=== PATIENT | male | born 1975 | race Caucasian/White ===

== ENCOUNTER 2018-09-12 05:10 | Observation (INO) ==
[2018-09-12] MEDS ORDERED: Ondansetron 4 MG/2 ML VIAL IVP PRN (07:39)
[2018-09-12] MEDS ORDERED: Naloxone 0.4 MG/ML INJ IVP PRN (07:39)
[2018-09-12 07:43] LABS: Basophils # 0.1 K/mcL (0.0-0.2); Basophils % 0.4 %; Eosinophils # 0.1 K/mcL (0.0-0.6); Eosinophils % 0.4 %; Hematocrit 40.4 % (37.5-50.1); Hemoglobin 13.3 g/dL (12.9-16.9); Immature Granulocytes % 0.5 % (0-4); Lymphocytes # 3.8 K/mcL (0.6-4.6); Mean Corpuscular HGB Conc 32.9 g/dL (31.6-35.5); Mean Corpuscular Hemoglobin 29.6 pg (28.0-33.3); Mean Corpuscular Volume 89.8 fL (83.0-100.0); Mean Platelet Volume 9.9 fL (9.4-12.4); Monocytes % 8.4 %; Neutrophils # 7.3 K/mcL (1.6-8.9); Platelet Count 275 K/mcL (140-400); Red Cell Distribution Width 13.1 % (11.5-14.5); Segmented Neutrophils % 59.3 %; White Blood Count 12.3 K/mcL (4.3-11.1)
[2018-09-12 07:44] LABS: Albumin 4.2 g/dL (3.5-5.7); Albumin/Globulin Ratio 1.4 (1.1-2.2); Bilirubin,Total 0.8 mg/dL (0.3-1.0); Calcium 8.9 mg/dL (8.6-10.3); Globulin 3.1 g/dL (2.4-3.5); Potassium 4.1 mEq/L (3.5-5.1); Total Protein 7.3 g/dL (6.4-8.9)
--- NOTE | 2018-09-12 08:35 | Internal Med History&Physical ---
Date of Encounter: 09/12/18 Time of Encounter: 08:29 Internal Medicine - H&P: HPI History of present illness: Mr. Obregon is a 42 year old male with no known past medical history presents as a transfer from [facility] due to acute kidney injury. He went to [place] after syncopal episode at work. Patient was not eating much as was dehydrated. Fellow workers told him he completely passed out despite giving him water and Gatorade. He denies any chest pain. Had a brief episode of SOB and nausea and difficulty urinating recently. Denies diarrhea, numbness/tingling, headache, change in vision, loss of bowel/bladder function. He arrived to [place] in no acute distress per reports. Labs showed he had a creatinine of 3.0, low magnesium, sodium 132, chloride 97. He had a Molina catheter placed to monitor I and O. No prior lab work is available. A CT abdomen/pelvis showed no acute findings. EKG was unremarkable. He was given about 3.5L of IV fluids prior to transfer. Glucose was elevated at 259 (after receiving glucose prior to arrival to [place]). Urine drug screen was positive for opiates and amphetamines. He is currently in no acute distress. He was transferred here as a request for further Nephrology workup and a renal ultrasound. Past Med Surg Social Fam HX - Past Medical History Medical history: hypertension Additional medical history: pre-diabetes, depression, KAUSHAL Psychiatric history: anxiety, depression - Past Surgical History Surgical History: no surgical history Additional surgical history: skin graft 1993 on left middle finger - Social History Smoking Status: Current every day smoker Packs per day: 5 cigs a day Smokeless Tobacco Status: No Alcohol use: none Drug use: marijuana, other - Family History Father Hx Family Cardiac Disorders: Yes (htn,) Hx Family Musculoskeletal Disorders: Yes (sciatica) Grandfather Hx Family Cancer: Yes (brain cancer) Grandmother Hx Family Cancer: Yes (breast cancer) Internal Medicine - H&P: Meds No Known Home Drugs 09/12/18 [History] Allergy/AdvReac Type Severity Reaction Status Date / Time Amoxicillin AdvReac Hives Verified 11/23/14 17:16 All Systems PM: A 10-system review of systems was performed and is negative for pertinent findings except as documented above in the HPI. - Constitutional Constitutional: excessive sweating, fatigue, falls, no anorexia, no chills, no weight gain, no weight loss - EENT Eyes: no blurry vision Ears: no decreased hearing, no ear pain, no tinnitus Nose, mouth and throat: no bleeding gums, no dysphagia - Cardiovascular Cardiovascular ROS IM: no chest pain, no dyspnea on exertion, no edema, no palpitations - Respiratory Additional comments: Brief episode of SOB - Genitourinary Genitourinary ROS male: difficulty urinating (for several months) - Musculoskeletal Musculoskeletal ROS IM: no arthralgias, no deformity, no muscle cramps - Integumentary Integumentary IM: no rash - Neurological Neurological ROS: dizziness, no abnormal gait, no abnormal hearing, no abnormal movements, no abnormal speech, no confusion, no convulsions, no focal weakness, no loss of vision, no memory loss, no numbness, no tremor(s) - Psychiatric Psychiatric: anxiety - Hematologic/Lymphatic Hematologic/Lymphatic: no easy bleeding, no easy bruising, no lymphadenopathy - Constitutional Vitals: Temp Pulse Resp BP Pulse Ox 97.6 F 73 17 129/88 96 09/12/18 06:30 09/12/18 06:30 09/12/18 06:30 09/12/18 06:30 09/12/18 06:30 General appearance: Present: A&O X 3 Exam: . - Head Head exam: Present: atraumatic, normocephalic - Eye Eye exam: Present: PERRL, conjuntiva pink, sclera anicteric Pupils: Present: PERRL - ENT Additional comments: Oral mucosa slightly dry. - Neck Neck exam general surgery: Present: supple, trachea midline. Absent: lymphadenopathy - Respiratory Respiratory exam: Present: CTAB. Absent: accessory muscle use, rales, rhonchi, wheezes - Cardiovascular Cardiovascular exam: Present: RRR, +S1, +S2. Absent: diastolic murmur, gallop, rubs, systolic murmur - GI/Abdominal GI/Abdominal exam: Present: normal bowel sounds, soft, no peritoneal signs. Absent: distended, tenderness - Extremities Exam Extremities exam: Present: warm, radial pulses palpable and symmetrical. Absent: calf tenderness, cyanotic, pedal edema - Neurological Exam Neurological exam: Present: CN II-XII intact, oriented X3, no focal deficits. Absent: pronater drift, facial droop, speech deficit - Psychiatric Additional comments: pressured speech - Skin Skin exam: Present: dry, intact Internal Med - H&P Results - Labs CBC & Chem 7: 09/12/18 07:09 09/12/18 07:09 Labs: Short CBC 09/12/18 Range/Units 07:09 WBC 12.3 H (4.3-11.1) K/mcL Hgb 13.3 D (12.9-16.9) g/dL Hct 40.4 (37.5-50.1) % Plt Count 275 (140-400) K/mcL Neutrophils # 7.3 (1.6-8.9) K/mcL BMP 09/12/18 07:09 Sodium 136 Potassium 4.1 Chloride 103 Carbon Dioxide 21 L BUN 37 H Creatinine 1.75 H Glucose 123 H Calcium 8.9 Liver Function 09/12/18 Range/Units 07:09 Total Bilirubin 0.8 (0.3-1.0) mg/dL AST 32 (13-39) Units/L ALT 58 H (7-52) Units/L Alkaline Phosphatase 56 (34-104) Units/L Albumin 4.2 (3.5-5.7) g/dL - Assessment and Plan (1) Acute renal failure Current Visit: No Status: Acute Assessment and plan: Highly suggestive of prerenal cause from dehydration. Given IV fluids at [place] and creatinine was 3.0, recheck here shows 1.7 with aggressive hydration. Nephrology consulted by request and renal ultrasound ordered. Continue I/Os. Qualifiers: Acute renal failure type: unspecified Qualified Code(s): N17.9 - Acute kidney failure, unspecified (2) Syncope Current Visit: Yes Status: Acute Assessment and plan: Secondary to dehydration. Patient was feeling dizzy, hot, poor PO. Passed out. No focal deficits. No loss of bowel/bladder function. After getting IV fluids patient feels much better. Obtain orthostatic vital signs. Qualifiers: Syncope type: vasovagal syncope Qualified Code(s): R55 - Syncope and collapse (3) Dehydration Current Visit: No Status: Acute Assessment and plan: as above (4) Hyperglycemia Current Visit: No Status: Acute Assessment and plan: He was given glucose prior to arrival to [place] but regardless there is significantly elevated glucose readings. Check A1C (5) Methamphetamine abuse Current Visit: No Status: Acute (6) Opiate abuse, episodic Current Visit: No Status: Acute (7) Transaminitis Current Visit: No Status: Acute Assessment and plan: Likel dehydration. Recheck shows labs are improving AST now 32, ALT still borderline elevated at 58. (8) DVT prophylaxis Current Visit: Yes Status: Acute Assessment and plan: Heparin sq - Time Spent With Patient Total time spent is greater than 50% in coordination of care (as documented) at patient's floor/unit and/or counseling patient:
[2018-09-12 09:29] LABS: Prothrombin Time 11.7 Seconds (9.4-12.1)
[2018-09-12] MEDS: 0.9 % Sodium Chloride 1,000 ML IVC SCH ×2 (09:30→19:16)
[2018-09-12 10:20] LABS: Estimated Average Glucose 123 mg/dl
[2018-09-12] MEDS ORDERED: Acetaminophen 325 MG TABLET PO ONE (15:19)
[2018-09-12] MEDS: Nicotine 14 MG PATCH.TD24 TD SCH (16:43)
--- NOTE | 2018-09-12 17:05 | Nephrology Consult Note ---
Date of Encounter: 09/12/18 Time of Encounter: 17:03 Assessment and Plan (1) Acute renal failure Current Visit: No Status: Acute The patient has acute kidney injury and is hard to tell does not have chronic kidney disease, but we do not have a records prior to this admission. His renal ultrasound is unremarkable. He has significant improvement over several hours suggesting that this is a prerenal insult. I agree with additional hydration and this can be done on outpatient basis with oral rehydration therapy. I would recommend he drink at least 3 L of liquids daily for a week and then he can decrease down to 2 L of liquids daily. If he is discharged she would need a renal function panel obtained in a week to assure that his renal function continues to improve. This can be followed by his primary pediatric critical care nurse and if warranted he came be referred to [facility] within a few weeks. If his renal function continues to improve then he can follow-up with [facility] in 2-3 months. As his renal function has improved significantly I will sign off please reconsult if you have any questions or concerns. He can follow up in [facility] and 1-3 months or earlier if needed. Thank you for the consult.. Qualifiers: Acute renal failure type: unspecified Qualified Code(s): N17.9 - Acute kidney failure, unspecified (2) Syncope Current Visit: Yes Status: Acute This could be dehydration, however I am not uncertain that anyone did orthostatic blood pressure and pulse. With the use of amphetamines he can also could have had an arrhythmia. At this time he seems to be okay. We will defer overall management to primary team. He probably would benefit from a cardiology evaluation the primary team can determine when I does not inpatient or outpatient evaluation. Qualifiers: Syncope type: vasovagal syncope Qualified Code(s): R55 - Syncope and collapse (3) Hyperglycemia Current Visit: No Status: Acute We will defer to primary team. (4) Methamphetamine abuse Current Visit: No Status: Acute History of Present Illness - Reason for Consult Consult date: 09/12/18 Acute Kidney Injury - Chief Complaint Acute kidney injury - History of Present Illness Mr. Obregon is a 42-year-old gentleman with a history of hypertension who presents as a transfer from an outside facility where he presented after having a syncopal event at work. Patient reports that he was drinking lots of pop, but was exerting himself quite a bit. He denies chest pain or dyspnea prior to this syncopal event. He denies chest pain after event, but states he has some mild dyspnea when he awakened. At the outside hospital he was noted to have a creatinine of 3.0 and was transferred for further evaluation. He reports that he occasionally, but does not regularly take NSAIDs. He denies a family history of kidney disease. At the time my evaluation he denies chest pain, shortness of breath, nausea, vomiting, or diarrhea. He really wants to go home. Past Med Surg Social Fam HX - Past Medical History Medical history: hypertension Additional medical history: pre-diabetes, depression, KAUSHAL Psychiatric history: anxiety, depression - Past Surgical History Surgical History: no surgical history Additional surgical history: skin graft 1993 on left middle finger - Social History Smoking Status: Current every day smoker Packs per day: 5 cigs a day Smokeless Tobacco Status: No Alcohol use: none Drug use: marijuana, other - Family History Father Hx Family Cardiac Disorders: Yes (htn,) Hx Family Musculoskeletal Disorders: Yes (sciatica) Grandfather Hx Family Cancer: Yes (brain cancer) Grandmother Hx Family Cancer: Yes (breast cancer) Medications and Allergies No Known Home Drugs 09/12/18 [History] Allergy/AdvReac Type Severity Reaction Status Date / Time Amoxicillin AdvReac Hives Verified 11/23/14 17:16 Review of Systems All Systems: reviewed and no additional remarkable complaints except as stated (As documented in the history of present illness) Exam - Vital Signs Vital signs: Initial Vital Signs Temp Pulse Resp BP Pulse Ox 97.6 F 73 17 129/88 96 09/12/18 06:30 09/12/18 06:30 09/12/18 06:30 09/12/18 06:30 09/12/18 06:30 Vital Signs - Last 8 Hours Temp Pulse Resp BP Pulse Ox 09/12/18 16:46 97.5 F L 58 18 106/57 96 09/12/18 10:53 98.0 F 67 18 100/58 98 Intake and Output 09/12/18 09/12/18 09/12/18 07:59 15:59 23:59 Output Total 525 / 525 Balance -525 / -525 Output: Urine 525 / 525 Other: Weight 105.1 kg Blood Glucose* 119 141 136 Patient Weight 06/20/19 23:59 Weight 105.1 kg - General Appearance General appearance: well-developed, well-nourished EENT: ATNC Neck: supple Respiratory: clear Cardiology: regular rate, regular rhythm Gastrointestinal: no tenderness Integumentary: warm and dry Neurologic: alert and oriented x3 Musculoskeletal: no cyanosis Psychiatric: mood/affect appropriate Additional Comments: He seems a little anxious Results - Lab Results 09/12/18 07:09 09/12/18 07:09 Most recent lab results 09/12/18 07:09 Calcium 8.9 Consult Discharge Plan - Plan Referrals: Higinio Mandel MD [Primary Care Provider] -
[2018-09-13 01:54] LABS: Amphetamine Screen,Urine Positive ng/mL (Cutoff=1000); Barbiturate Screen,Urine Negative ng/mL (Cutoff=200); Benzodiazepines Screen,Urine Negative ng/mL (Cutoff=200); Cannabinoid Screen,Urine Negative ng/mL (Cutoff = 50); Cocaine Screen,Urine Negative ng/mL (Cutoff= 300); Opiate Screen,Urine Positive ng/mL (Cutoff=300); Phencyclidine Screen,Urine Negative ng/mL (Cutoff=25)
[2018-09-13 03:26] LABS: Basophils % 0.5 %; Eosinophils # 0.3 K/mcL (0.0-0.6); Eosinophils % 2.9 %; Hematocrit 38.3 % (37.5-50.1); Hemoglobin 12.4 g/dL (12.9-16.9); Immature Granulocytes % 0.2 % (0-4); Lymphocytes # 3.9 K/mcL (0.6-4.6); Lymphocytes % 45.8 %; Mean Corpuscular HGB Conc 32.4 g/dL (31.6-35.5); Mean Corpuscular Hemoglobin 29.1 pg (28.0-33.3); Mean Corpuscular Volume 89.9 fL (83.0-100.0); Monocytes # 0.9 K/mcL (0.0-1.3); Monocytes % 10.2 %; Neutrophils # 3.4 K/mcL (1.6-8.9); Platelet Count 244 K/mcL (140-400); Red Blood Count 4.26 M/mcL (4.19-5.50); Red Cell Distribution Width 13.3 % (11.5-14.5); Segmented Neutrophils % 40.4 %; White Blood Count 8.5 K/mcL (4.3-11.1)
[2018-09-13 03:37] LABS: BUN/Creatinine Ratio 30 (6-26); Blood Urea Nitrogen 25 mg/dL (6-20); Calcium 9.1 mg/dL (8.6-10.3); Carbon Dioxide 26 mEq/L (23-29); Chloride 106 mEq/L (98-107); Glucose 96 mg/dL (70-105); Osmolality,Calculated 288 (280-300); Sodium 137 mEq/L (136-145); eGFR For African Americans > 60 (> 60); eGFR For Non-African Americans > 60 (> 60)
[2018-09-13] MEDS: Nicotine 14 MG PATCH.TD24 TD SCH (06:32)
[2018-09-13 07:49] VITALS: BP 146/86
--- NOTE | 2018-09-13 08:28 | Discharge Summary ---
- NOTES TO OUTPATIENT PROVIDER Notes to Outpatient Provider: Repeat BMP in one week. Per Nephrology consult, Patient should drink 3 L daily for a week and then can decrease down to 2 L liquids daily. Orders not resulted at time of discharge: Pending orders 09/14/18 04:00 Basic Metabolic Panel AM 0400 Complete Blood Count [HEME] AM 0400 09/15/18 04:00 Basic Metabolic Panel AM 0400 Complete Blood Count [HEME] AM 0400 Date of Encounter: 09/13/18 Time of Encounter: 08:24 - Discharge Diagnosis (1) Acute renal failure Priority: Primary Status: Resolved Qualifiers: Acute renal failure type: unspecified Qualified Code(s): N17.9 - Acute kidney failure, unspecified (2) Syncope Priority: Secondary Status: Acute Qualifiers: Syncope type: vasovagal syncope Qualified Code(s): R55 - Syncope and collapse (3) Dehydration Priority: Secondary Status: Acute (4) Hyperglycemia Priority: Secondary Status: Acute (5) Methamphetamine abuse Priority: Secondary Status: Acute (6) Opiate abuse, episodic Priority: Secondary Status: Acute (7) Transaminitis Priority: Secondary Status: Acute (8) DVT prophylaxis Priority: Secondary Status: Acute Hospital course: Mr. Obregon is a 42 year old male with no known past medical history presents as a transfer from [facility] due to acute kidney injury. He went to [place] after syncopal episode at work. Patient was not eating much as was dehydrated. Fellow workers told him he completely passed out despite giving him water and Gatorade. He denies any chest pain. Had a brief episode of SOB and nausea and difficulty urinating recently. Denies diarrhea, numbness/tingling, headache, change in vision, loss of bowel/bladder function. He arrived to [place] in no acute distress per reports. Labs showed he had a creatinine of 3.0, low magnesium, sodium 132, chloride 97. He had a Molina catheter placed to monitor I and O. No prior lab work is available. A CT abdomen/pelvis showed no acute findings. EKG was unremarkable. He was given about 3.5L of IV fluids prior to transfer. Glucose was elevated at 259 (after receiving glucose prior to arrival to [place]). Urine drug screen was positive for opiates and amphetamines. He is currently in no acute distress. He was transferred here as a request for further Nephrology workup and a renal ultrasound. Ultrasound done that was unremarkable. Nephrology was consulted and by that time renal function improved to normal limits after aggressive IV fluid hydration. He was discharged home in stable condition. Per Nephrology recommendations, drink 3L of fluids per day for one week then can go down to 2 L per day. - Time Spent with Patient Total time spent providing and/or coordinating discharge services: - Discharge Medications Prescriptions: New Nicotine Patch [Nicoderm] 14 mg TD DAILY #30 patch.td24 Home Medications: Nicotine Patch [Nicoderm] 14 mg TD DAILY #30 patch.td24 09/13/18 [Rx] Allergies/Adverse Reactions: Allergy/AdvReac Type Severity Reaction Status Date / Time Amoxicillin AdvReac Hives Verified 11/23/14 17:16 Date of admission: 09/12/18 07:40 Primary care physician: Higinio Mandel Consults: 09/12/18 06:33 Consult to [facility] [CONS] Routine Reason for SW Consult: mental health/financial concerns/drug use 09/12/18 06:55 Consult to Nephrology [CONS] Routine Consulting Provider: [facility]/CARLI/AKBAR/PAULO Reason for Consult: ISAIAH Call Completed: No Discharging clinician: Eduardo Neff - Constitutional Vitals: Temp Pulse Resp BP Pulse Ox 97.3 F L 60 16 146/86 97 09/13/18 07:40 09/13/18 07:40 09/13/18 07:40 09/13/18 07:40 09/13/18 07:40 General appearance: Present: A&O X 3 Exam: . - Head Head exam: Present: atraumatic, normocephalic - Eye Eye exam: Present: PERRL, conjuntiva pink, sclera anicteric Pupils: Present: PERRL - Neck Neck exam general surgery: Present: supple, trachea midline. Absent: lymphadenopathy - Respiratory Respiratory exam: Present: CTAB. Absent: accessory muscle use, rales, rhonchi, wheezes - Cardiovascular Cardiovascular exam: Present: RRR, +S1, +S2. Absent: diastolic murmur, gallop, rubs, systolic murmur - GI/Abdominal GI/Abdominal exam: Present: normal bowel sounds, soft, no peritoneal signs. Absent: distended, tenderness - Extremities Exam Extremities exam: Present: warm, radial pulses palpable and symmetrical. Absent: calf tenderness, cyanotic, pedal edema - Neurological Exam Neurological exam: Present: CN II-XII intact, oriented X3, no focal deficits. Absent: pronater drift, facial droop, speech deficit - Skin Skin exam: Present: dry, intact - Patient Status Disposition: Home, Self-Care Condition: Good Functional capacity at discharge: independent ambulation Overall status at discharge: patient is back to baseline - Discharge Instructions Follow Up With: Higinio Mandel MD [Primary Care Provider] - - Diet and Activity Activity: increase activity as tolerated Diet: advance to your usual diet
== END 2018-09-13 10:08 | disposition home or self-care (01) ==
LOC: 2ANU → SUATTDRO 06:15
PROVIDERS: ADMIT Internal Medicine; ATTEND Student in an Organized Health Care Education/Training Program

== ENCOUNTER 2021-01-25 14:27 | Inpatient (IN) ==
[2021-01-25 15:22] LABS: Basophils # 0.1 K/mcL (0.0-0.2); Basophils % 1.3 %; Eosinophils # 0.3 K/mcL (0.0-0.6); Eosinophils % 4.8 %; Hematocrit 43.1 % (37.5-50.1); Hemoglobin 14.5 g/dL (12.9-16.9); Immature Granulocytes % 0.7 % (0-4); Lymphocytes # 2.2 K/mcL (0.6-4.6); Lymphocytes % 35.7 %; Mean Corpuscular HGB Conc 33.6 g/dL (31.6-35.5); Mean Corpuscular Hemoglobin 30.5 pg (28.0-33.3); Mean Corpuscular Volume 90.5 fL (83.0-100.0); Mean Platelet Volume 10.6 fL (9.4-12.4); Monocytes # 0.8 K/mcL (0.0-1.3); Monocytes % 12.7 %; Neutrophils # 2.7 K/mcL (1.6-8.9); Platelet Count 243 K/mcL (140-400); Red Blood Count 4.76 M/mcL (4.19-5.50); Red Cell Distribution Width 12.8 % (11.5-14.5); Segmented Neutrophils % 44.8 %; White Blood Count 6.1 K/mcL (4.3-11.1)
[2021-01-25 16:28] LABS: Bilirubin,Urine Negative (Negative); Blood,Urine Negative (Negative); Clarity,Urine Clear (Clear); Color,Urine Light-Yellow (Yellow); Glucose,Urine (UA) Normal (Normal); Ketones,Urine Negative (Negative); Leukocyte Esterase,Urine Negative (Negative); Nitrite,Urine Negative (Negative); Protein,Urine Negative (Neg-Trace); Specific Gravity,Urine 1.022 (1.010-1.025); Urobilinogen,Urine Normal (Normal)
[2021-01-25 16:56] LABS: Amphetamine Screen,Urine Positive ng/mL (Cutoff=1000); Barbiturate Screen,Urine Negative ng/mL (Cutoff=200); Benzodiazepines Screen,Urine Positive ng/mL (Cutoff=200); Cannabinoid Screen,Urine Negative ng/mL (Cutoff = 50); Cocaine Screen,Urine Negative ng/mL (Cutoff= 300); Opiate Screen,Urine Negative ng/mL (Cutoff=300); Phencyclidine Screen,Urine Negative ng/mL (Cutoff=25)
[2021-01-25 16:56] LABS: BUN/Creatinine Ratio 16 (6-26); Blood Urea Nitrogen 13 mg/dL (6-20); Carbon Dioxide 23 mEq/L (23-29); Chloride 104 mEq/L (98-107); Potassium 4.2 mEq/L (3.5-5.1); Sodium 136 mEq/L (136-145)
[2021-01-25 16:57] LABS: Acetaminophen < 10 mcg/mL (10-20); Calcium 9.8 mg/dL (8.6-10.3); Ethanol < 10 mg/dL (Less than 10); Glucose 107 mg/dL (70-105); Osmolality,Calculated 283 (280-300); Salicylate < 2.5 mg/dL (15.0-30.0); eGFR For African Americans > 60 (> 60); eGFR For Non-African Americans > 60 (> 60)
[2021-01-25 19:30] LABS: Influenza A PCR Negative (Negative); Influenza B PCR Negative (Negative); Resp. Syncytial Virus PCR Negative (Negative)
[2021-01-25 19:36] LABS: SARS-CoV-2 by PCR (In House) Negative (Negative)
[2021-01-25] MEDS ORDERED: Haloperidol Lactate 5 MG/ML VIAL IM PRN (20:04)
[2021-01-25] MEDS ORDERED: haloperidoL 5 MG TABLET PO PRN (20:04)
[2021-01-25] MEDS ORDERED: Lisinopril-HCTZ 20-12.5mg TABLET PO STA (20:52)
[2021-01-26] MEDS: Ibuprofen 400 MG TABLET PO PRN ×3 (00:03→20:02)
[2021-01-26] MEDS: hydrOXYzine pamoate 25 MG CAPSULE PO PRN ×2 (00:03→20:02)
[2021-01-26] MEDS: traZODone 50 MG TABLET PO PRN ×2 (00:04→20:02)
[2021-01-26] MEDS: Nicotine 14 MG PATCH.TD24 TD SCH (08:29)
[2021-01-26] MEDS: ARIPiprazole 10 MG TABLET PO SCH (08:29)
[2021-01-27] MEDS: Nicotine 14 MG PATCH.TD24 TD SCH (09:25)
[2021-01-27] MEDS: ARIPiprazole 10 MG TABLET PO SCH (09:26)
[2021-01-27] MEDS: hydrOXYzine pamoate 25 MG CAPSULE PO PRN ×2 (09:29→16:36)
[2021-01-27] MEDS: Ibuprofen 400 MG TABLET PO PRN (10:13)
[2021-01-27 17:36] LABS: Bilirubin,Urine Negative (Negative); Blood,Urine Moderate (Negative); Clarity,Urine Clear (Clear); Color,Urine Light-Yellow (Yellow); Glucose,Urine (UA) Normal (Normal); Ketones,Urine Negative (Negative); Leukocyte Esterase,Urine Negative (Negative); Mucus,Urine Few per lpf (None-Few); Nitrite,Urine Negative (Negative); Protein,Urine Negative (Neg-Trace); RBC,Urine 30-50 per hpf (0-3); Specific Gravity,Urine 1.016 (1.010-1.025); Squamous Epithelial Cell,Urine Few per hpf (None-Few); Urobilinogen,Urine Normal (Normal); WBC,Urine 0-3 per hpf (0-3)
[2021-01-27 18:46] LABS: Basophils # 0.1 K/mcL (0.0-0.2); Basophils % 0.9 %; Eosinophils # 0.1 K/mcL (0.0-0.6); Hemoglobin 14.5 g/dL (12.9-16.9); Immature Granulocytes % 0.4 % (0-4); Lymphocytes # 2.5 K/mcL (0.6-4.6); Lymphocytes % 35.7 %; Mean Corpuscular Volume 90.9 fL (83.0-100.0); Mean Platelet Volume 10.5 fL (9.4-12.4); Monocytes # 0.7 K/mcL (0.0-1.3); Monocytes % 10.3 %; Neutrophils # 3.6 K/mcL (1.6-8.9); Platelet Count 222 K/mcL (140-400); Red Blood Count 4.84 M/mcL (4.19-5.50); Red Cell Distribution Width 12.6 % (11.5-14.5); Segmented Neutrophils % 50.7 %
[2021-01-27 19:08] LABS: BUN/Creatinine Ratio 14 (6-26); Blood Urea Nitrogen 13 mg/dL (6-20); Calcium 9.8 mg/dL (8.6-10.3); Carbon Dioxide 26 mEq/L (23-29); Chloride 103 mEq/L (98-107); Glucose 154 mg/dL (70-105); Magnesium 1.7 mg/dL (1.6-2.6); Osmolality,Calculated 287 (280-300); Potassium 4.1 mEq/L (3.5-5.1); Sodium 137 mEq/L (136-145); eGFR For African Americans > 60 (> 60); eGFR For Non-African Americans > 60 (> 60)
[2021-01-27] MEDS: *HR* OxyCODONE/APAP 5/325 TABLET PO PRN (20:07)
[2021-01-27] MEDS: traZODone 50 MG TABLET PO PRN (20:08)
[2021-01-28 04:16] LABS: Basophils # 0.1 K/mcL (0.0-0.2); Basophils % 0.9 %; Eosinophils # 0.3 K/mcL (0.0-0.6); Eosinophils % 3.9 %; Hemoglobin 14.6 g/dL (12.9-16.9); Immature Granulocytes % 0.6 % (0-4); Lymphocytes # 2.8 K/mcL (0.6-4.6); Mean Corpuscular HGB Conc 33.2 g/dL (31.6-35.5); Mean Corpuscular Hemoglobin 30.1 pg (28.0-33.3); Mean Corpuscular Volume 90.7 fL (83.0-100.0); Mean Platelet Volume 10.5 fL (9.4-12.4); Monocytes # 0.8 K/mcL (0.0-1.3); Monocytes % 11.4 %; Neutrophils # 2.9 K/mcL (1.6-8.9); Platelet Count 212 K/mcL (140-400); Red Blood Count 4.85 M/mcL (4.19-5.50); Red Cell Distribution Width 12.7 % (11.5-14.5); Segmented Neutrophils % 42.2 %; White Blood Count 6.9 K/mcL (4.3-11.1)
[2021-01-28 04:35] LABS: BUN/Creatinine Ratio 17 (6-26); Blood Urea Nitrogen 14 mg/dL (6-20); Calcium 9.1 mg/dL (8.6-10.3); Carbon Dioxide 24 mEq/L (23-29); Chloride 105 mEq/L (98-107); Glucose 137 mg/dL (70-105); Magnesium 1.7 mg/dL (1.6-2.6); Osmolality,Calculated 285 (280-300); Sodium 136 mEq/L (136-145); eGFR For African Americans > 60 (> 60); eGFR For Non-African Americans > 60 (> 60)
[2021-01-28 08:46] LABS: Estimated Average Glucose 128 mg/dl; Hemoglobin A1C 6.1 %
[2021-01-28] MEDS: Nicotine 14 MG PATCH.TD24 TD SCH (08:51)
[2021-01-28] MEDS: ARIPiprazole 10 MG TABLET PO SCH (08:51)
[2021-01-28] MEDS: *HR* OxyCODONE/APAP 5/325 TABLET PO PRN ×2 (08:53→16:55)
[2021-01-28] MEDS: hydrOXYzine pamoate 25 MG CAPSULE PO PRN ×2 (14:00→20:36)
[2021-01-28] MEDS: traZODone 50 MG TABLET PO PRN (20:36)
[2021-01-29] MEDS: *HR* OxyCODONE/APAP 5/325 TABLET PO PRN ×4 (00:42→21:24)
[2021-01-29] MEDS: ARIPiprazole 10 MG TABLET PO SCH (08:44)
[2021-01-29] MEDS: Nicotine 14 MG PATCH.TD24 TD SCH (08:45)
[2021-01-29 11:26] LABS: Basophils # 0.1 K/mcL (0.0-0.2); Basophils % 0.8 %; Eosinophils # 0.2 K/mcL (0.0-0.6); Eosinophils % 3.6 %; Hematocrit 44.2 % (37.5-50.1); Hemoglobin 14.8 g/dL (12.9-16.9); Immature Granulocytes % 0.3 % (0-4); Lymphocytes # 2.5 K/mcL (0.6-4.6); Lymphocytes % 39.3 %; Mean Corpuscular HGB Conc 33.5 g/dL (31.6-35.5); Mean Corpuscular Hemoglobin 30.3 pg (28.0-33.3); Mean Corpuscular Volume 90.4 fL (83.0-100.0); Mean Platelet Volume 10.9 fL (9.4-12.4); Monocytes # 0.5 K/mcL (0.0-1.3); Monocytes % 8.4 %; Neutrophils # 3.1 K/mcL (1.6-8.9); Platelet Count 213 K/mcL (140-400); Red Blood Count 4.89 M/mcL (4.19-5.50); Red Cell Distribution Width 12.6 % (11.5-14.5); Segmented Neutrophils % 47.6 %; White Blood Count 6.4 K/mcL (4.3-11.1)
[2021-01-29 11:46] LABS: BUN/Creatinine Ratio 22 (6-26); Blood Urea Nitrogen 19 mg/dL (6-20); Calcium 9.5 mg/dL (8.6-10.3); Carbon Dioxide 28 mEq/L (23-29); Chloride 101 mEq/L (98-107); Glucose 140 mg/dL (70-105); Magnesium 1.7 mg/dL (1.6-2.6); Osmolality,Calculated 285 (280-300); Potassium 3.5 mEq/L (3.5-5.1); Sodium 135 mEq/L (136-145); eGFR For African Americans > 60 (> 60); eGFR For Non-African Americans > 60 (> 60)
[2021-01-29] MEDS: hydrOXYzine pamoate 25 MG CAPSULE PO PRN ×2 (13:34→21:00)
[2021-01-29] MEDS: traZODone 50 MG TABLET PO PRN (21:00)
[2021-01-30] MEDS: *HR* OxyCODONE/APAP 5/325 TABLET PO PRN ×2 (05:13→11:43)
[2021-01-30] MEDS: ARIPiprazole 10 MG TABLET PO SCH (08:40)
[2021-01-30] MEDS: Nicotine 14 MG PATCH.TD24 TD SCH (08:41)
[2021-01-30] MEDS: traZODone 50 MG TABLET PO PRN (20:12)
[2021-01-30] MEDS: hydrOXYzine pamoate 25 MG CAPSULE PO PRN (20:12)
[2021-01-31] MEDS: ARIPiprazole 10 MG TABLET PO SCH (08:12)
[2021-01-31] MEDS: Nicotine 14 MG PATCH.TD24 TD SCH (08:37)
[2021-01-31] MEDS ORDERED: *HR* OxyCODONE/APAP 5/325 TABLET PO SCH (09:00)
[2021-01-31 09:52] VITALS: BP 130/87; PULSE 84; TEMP 97.6; O2SAT 96
[2021-01-31] MEDS: hydrOXYzine pamoate 25 MG CAPSULE PO PRN (12:47)
== END 2021-01-31 14:30 | disposition home or self-care (01) | DRG 751 ==
LOC: EMEROOARM 14:27 → 1ANU 14:27 → INTOOBSV 20:06 → 1ANU 23:50
PROVIDERS: ADMIT Psychiatry & Neurology Psychiatry; ATTEND Psychiatry & Neurology Psychiatry